=== PATIENT | male | born 1970 | race Caucasian/White ===

== ENCOUNTER 2018-10-16 17:12 | Emergency (ER) | payer OTHER ==
[2018-10-16] MEDS ORDERED: ACCU-CHEK XX (17:30)
[2018-10-16] MEDS: INSULIN LISPRO 100 UNIT/ML VIAL SC (17:36)
== END 2018-10-16 20:35 ==
LOC: E/R 17:12
DX: E11.65 Type 2 diabetes mellitus with hyperglycemia (principal); F17.210 Nicotine dependence, cigarettes, uncomplicated; Z79.82 Long term (current) use of aspirin; Z79.4 Long term (current) use of insulin
CPT/HCPCS: 82962; 96372; 99284-25